=== PATIENT | male | born 1950 ===

== ENCOUNTER 2016-06-05 06:41 | Day surgery (SDC) | payer OTHER ==
--- NOTE | 2016-06-04 18:57 | HP ---
ALIN JIMÉNEZ [id number] HISTORY OF PRESENT ILLNESS: He is a 65-year-old who presents to my clinic with complaints of painful hammertoe and bunion of the right foot for the past several years. He has had surgery on it years ago. He has not gotten decent results with the surgery and has the 2nd toe and the big toe overlapping each other and causing pain when he walks in his shoes. He has tried past treatment including changes in shoe gear, pads and supports, with no real relief of symptoms. PAST MEDICAL HISTORY: Centers around chief complaint. He does have a history of kidney and liver cancer. PAST SURGICAL HISTORY: He has had: 1. Cataracts. 2. Appendectomy. 3. Surgery on the right foot years ago. REVIEW OF SYSTEMS: Centers around chief complaint. ALLERGIES: No known drug allergies. FAMILY HISTORY: Significant for diabetes on the father's side. SOCIAL HISTORY: He states no alcohol use. He states a half pack of tobacco use since age 13. MEDICATIONS: He will supply a med list on admission. PHYSICAL EXAMINATION: VITAL SIGNS: Blood pressure 108/69. Pulse is 68 and regular. HEENT: Head is normocephalic. External exam of the ears and eyes is negative. Throat shows no masses or inflammation. LUNGS: Clear to auscultation in all cota. HEART: Shows a regular rate and rhythm. No murmurs or gallops. ABDOMEN: Soft, nontender and nondistended. LOWER EXTREMITIES: Pedal pulses intact. Filling time of 2-3 seconds. Color of skin is pink. NEUROLOGIC: Gross sensation intact. DERMATOLOGIC: Temperature, texture and turgor are within normal limits. There is positive hair growth at the digits. MUSCULOSKELETAL: He has a hallux valgus deformity of the right hallux, with contracture of the 2nd toe on the PIP joint that is rigid. ASSESSMENT/PLAN: We diagnosed him with the hallux abductovalgus deformity and painful hammertoe deformity right 2nd toe. We are scheduling him for an Reji osteotomy of the right hallux with hammertoe arthrodesis of the PIP joint 2nd toe right. This will be done under MAC sedation with local block. All risks and complications inherent to the procedure are gone over with the patient and he understands this. He has no contraindications at this time and will be scheduled for surgery at [facility] on 06/05/2016.
[~2016-06-05 06:41] MED LIST: CEFAZOLIN SODIUM 2 GRAM PREMIX 100 ML IV ONE; CEFAZOLIN SODIUM 2 GRAM PREMIX 100 ML IV PRN; FENTANYL 100 MCG/2 ML VIAL ONE; IV START KIT ONE; LACTATED RINGERS 1,000 ML ONE; LIDOCAINE 2% (PRES FREE) 5 ML VIAL ONE; MIDAZOLAM HCL 1 MG/ML 2ML VIAL ONE; PHENYLEPHRINE 10 MG/1 ML (1%) VIAL ONE; PROPOFOL 20 ML IV ONE; SODIUM CHLORIDE 0.9% FLUSH 10 ML ONE
[2016-06-05] MEDS ORDERED: BUPIVACAINE 0.5% (PRES FREE) 30 ML VIAL ONE (06:55)
[2016-06-05] MEDS ORDERED: LIDOCAINE 1% (PRES FREE) 30 ML VIAL ONE (06:55)
[2016-06-05 07:29] LABS: ABSOLUTE NEUTROPHIL COUNT 3.5 K/mm3 (1.8-7.7); BASO % 0.6 % (0.2-1.0); EOS # 0.2 (0.0-0.5); EOS % 3.5 % (0.9-2.9); IMM NEUT% 0.2 % (0-1); LYMPH # 1.7 (1.0-4.8); MEAN CELL VOLUME 97.3 fl (80.0-94.0); MEAN CORPUSCULAR HEMOGLOBIN 32.4 pg (27.0-31.0); MEAN CORPUSCULAR HGB CONC 33.3 g/dl (33.0-37.0); MEAN PLATELET VOLUME 9.9 fl (7.4-10.4); MONO # 0.8 (0.0-0.8); MONO % 12.2 % (4-12); NEUT % 56.5 % (43-75); PLATELET COUNT 156 K/mm3 (130-400)
--- NOTE | 2016-06-05 08:38 | RAD ---
INTRAOPERATIVE FLUOROSCOPY HISTORY: First and second toe repair. TECHNIQUE: 10 seconds of fluoroscopy time was provided for Dr. Garibay for purposes of procedural guidance. 2 fluoroscopic spot images were submitted for review. FINDINGS: Frontal and lateral views of the forefoot demonstrate changes of hallux valgus deformity repair and second hammertoe deformity repair. IMPRESSION: Fluoroscopy provided for procedural guidance.
[2016-06-05] MEDS ORDERED: OXYCODONE HCL 5 MG TABLET PO PRN (08:50)
[2016-06-05] MEDS ORDERED: OXYCODONE HCL 5 MG TABLET ONE (09:07)
--- NOTE | 2016-06-05 11:17 | OP ---
Chandra Miguel DATE OF SURGERY: 06/05/2016 SURGEON: Antwon Garibay M.D. PREOPERATIVE DIAGNOSES: Hallux valgus deformity with hammertoe deformities second toe. POSTOPERATIVE DIAGNOSES: Hallux valgus deformity with hammertoe deformities second toe. PROCEDURE: Reji osteotomy of the right hallux with internal fixation and arthrodesis of the proximal interphalangeal joint in the second toe using internal fixation. ANESTHESIA: MAC sedation with local block using 15 mL of 1% lidocaine and 0.5% Marcaine in a local block to the first and second ray on the right foot. HEMOSTASIS: Ankle tourniquet inflated to 250 mmHg for a total of 50 minutes right ankle. ESTIMATED BLOOD LOSS: Less than 10 mL. MATERIALS: 3-0 Vicryl, 3-0 Prolene, 1.062 K-wires, and 1 size 10 osteo-staple. PROCEDURE: The patient was brought into the operating room and laid on the operating room table in supine position. After he was adequately sedated we anesthetized the foot with the above said anesthetic block. Prepped and draped the foot in a standard sterile fashion using an Esmarch. We exsanguinated blood from the right foot and inflated the ankle tourniquet at this time. Attention was drawn to the dorsum of the right first metatarsophalangeal joint where a longitudinal incision was made to the EHL tendon running approximately 2 cm proximal to the joint line and 2 cm distal to the joint. This incision was deepened to the epidermis and dermis. All superficial vessels were Bovie cautery using Metzenbaum scissors. We deepened this through the subcutaneous tissue down to the periosteum joint capsule using sharp dissection. A dorsal capsulotomy reflected the capsular tissue off the head of the first metatarsal and off the base of the proximal phalanx. We did this on the lateral side as well. At this point, we went into the first intermetatarsal space through the same incision by using Metzenbaum scissors. We deepened this down to the conjoint tendon the adductor longus muscle. We went ahead performed a lateral capsulorrhaphy and reflected the conjoint tendon off the base of the proximal phalanx of the head of the first metatarsal. Once we had an adequate release performed we edvin our attention back to the base of the proximal phalanx where a transverse bone cut was made about 1 cm from the articular surface distally running through the medial cortex to the lateral cortex, but not through the lateral cortex. A second bone cut was made at about a 15 to 20 degree angle from this first bone cut removing 3 to 4 mm wedge of bone, still not going through the lateral cortex. We compressed the two bone fragments back together, I fixated this permanently with size 10 osteo-staple in a standard fashion. Attention was then drawn to the deep structures where we reapproximated the joint capsule and periosteum back together with 3-0 Vicryl in a running fashion. Closed the superficial structures with 3-0 Vicryl in a simple interrupted fashion. Closed the skin with 3-0 Prolene in horizontal fashion. Attention was drawn to the second toe where a longitudinal incision is made over the proximal interphalangeal joint running about midline down the toe. This incision ran about 1.5 cm proximal to the joint line and about 2 cm distal to the joint line. The incision was deepened through the epidermis and dermis. Using Metzenbaum scissors we deepened this down to the proximal interphalangeal joint. Using sharp dissection we reflected the capsular tissue and periosteum off the head of the proximal phalanx and off the base of the intermediate phalanx. Using a sagittal saw we removed the head of the proximal phalanx and the base of the intermediate phalanx. We then attempted to use a Jones-Nephew hammertoe implant, but as we were tapping the bone down the bone was too brittle and would not accept the tap properly. We decided to go ahead and stop the process of putting the implant in and drove a 0.062 K-wire out the distal aspect of the toe and then retrograded this down the shaft the proximal phalanx. We checked it position with x-ray and noted to be in good anatomical alignment. We then went ahead and buried the end of the pen at the distal aspect of the toe. Closed the distal incision with 3-0 Prolene. We went ahead and went back and reapproximated the EDL tendon with 3-0 Vicryl in a simple interrupted fashion. Closed the subcutaneous tissue back together with 3-0 Vicryl in a simple interrupted fashion. Closed the skin with 3-0 Prolene in a horizontal mattress fashion. The wounds were dressed with Xeroform and dry sterile dressings. The tourniquet was let down. There was no perfusion of the foot. The patient tolerated the procedure well and left operating room for recovery with vital signs stable and in no apparent distress. Follow up in my office in 72 hours for postoperative check. JOB: [id number]
== END 2016-06-05 10:30 | disposition home or self-care (01) ==
LOC: SDC 06:41
PROVIDERS: ATTEND Podiatrist
PROC: 0SGP0ZZ (ICD-10-PCS; principal; 2016-06-05)
PROC: 0QBQ0ZZ Excision of Right Toe Phalanx, Open Approach (ICD-10-PCS; 2016-06-05)
DX: M20.11 Hallux valgus (acquired), right foot (principal); M20.41 Other hammer toe(s) (acquired), right foot; F17.210 Nicotine dependence, cigarettes, uncomplicated; J44.9 Chronic obstructive pulmonary disease, unspecified; I25.2 Old myocardial infarction; Z85.528 Personal history of other malignant neoplasm of kidney; Z85.05 Personal history of malignant neoplasm of liver; Z92.21 Personal history of antineoplastic chemotherapy; Z92.3 Personal history of irradiation
CPT/HCPCS: 85025; 76000; 73620; 93005; 28298; 28285; J3010; J2370; A9270; J2250; J2001; J7120; J0690